=== PATIENT | female | born 1990 | race Hispanic/Latino ===

== ENCOUNTER 2016-10-12 03:46 | Outpatient (CLI) | payer OTHER ==
[~2016-10-12] VITALS: Ht 160 cm; Wt 88.0 kg
[2016-10-12] MEDS ORDERED: ACETAMINOPHEN 500 MG TAB As Ordered ONE (06:40)
[2016-10-12] MEDS ORDERED: ACETAMINOPHEN 500 MG TAB PO ONE (07:30)
== END 2016-10-12 07:00 | disposition home or self-care (01) ==
LOC: M LDO 03:46
PROVIDERS: ATTEND Obstetrics & Gynecology
DX: O26.893 Other specified pregnancy related conditions, third trimester (principal); R10.9 Unspecified abdominal pain; Z3A.33 33 weeks gestation of pregnancy

== ENCOUNTER 2016-10-27 16:15 | Outpatient (CLI) | payer OTHER ==
[~2016-10-27] VITALS: Ht 160 cm; Wt 92.0 kg
[2016-10-27 16:36] VITALS: BP 111/54
[2016-10-27] MEDS ORDERED: D5W 1000 ML IV ONE (17:15)
--- NOTE | 2016-10-27 17:27 | HPE ---
DATE OF ADMISSION: 10/27/2016 Lidia is a 26-year-old 1, para 0 at 35-5/7 weeks gestation with an EDC of 11/26/2016 based on last normal menstrual period and confirmed by first trimester ultrasound. She presents to labor and delivery today with report of onset of low right-sided back pain that initially started at approximately 12:38 a.m. this morning and has continued to progressively become more uncomfortable. She reports taking Tylenol at 0900 hours this morning and has not ate or drank much throughout the day. The fetus is active. Denies vaginal bleeding and leakage of fluid. care was initiated at [facility] in the first trimester. course has been uncomplicated. OBSTETRICAL HISTORY: Primigravida. OB LABS: O+, antibody screen negative, rubella immune, VDRL nonreactive. Urine culture no growth. Hep B surface antigen negative, HIV negative. Hep C antibody negative. Gonorrhea and chlamydia negative, negative cystic fibrosis carrier screening. Gestational diabetic screening 126. GBS is unknown. However was obtained in the office today. PAST MEDICAL HISTORY: Seasonal allergies. Childhood varicella. SURGERIES: None. FAMILY HISTORY: Diabetes. SOCIAL HISTORY: The patient is single. However, the father of the baby is at bedside and is supportive. She denies smoking, denies alcohol use and drug use. No history of any sexually transmitted infections. Denies history of abuse physical, sexual or emotional. ALLERGIES: No known drug allergies. CURRENT MEDICATIONS: Include only vitamins. PHYSICAL EXAMINATION: Temperature 99.3 with temperature oral, pulse 116, respirations 18, blood pressure 111/54. heart rate is 165 with moderate variability, positive excels. No decelerations. She does have an occasional contraction per EFM. Evaluation in the office with a UA demonstrates her urine with a specific gravity of 1.020, pH 6, 2+ leukocytes, 1+ nitrites, 3+ protein, 3+ blood. Sterile vaginal examination: 1 cm dilated, thick and high station, moderate texture posterior and no bloody show, positive bilateral CVA tenderness. ASSESSMENT: Intrauterine at 35 weeks and 5 days. heart rate category one. Pyelonephritis. PLAN: Per consult with Dr. Abel Molina to labor and delivery for 24-hour observation. Labs including CBC, renal profile, CMP. Renal ultrasound, IV fluid bolus. Regular diet. Out of bed ad stella. Likely will keep the patient until she is afebrile times 24 hours and then send her home on by mouth antibiotics. Urine culture was obtained in the office as well.
[2016-10-27 17:30] LABS: BASO % 0.2 % (0.0-1.0); EOS # 0.1 K/mm3 (0.0-0.50); EOS % 0.6 % (0.0-3.0); LARGE UNSTAINED CELL # 0.2 K/mm3 (0.0-0.4); LARGE UNSTAINED CELL % 1.3 % (0.0-4.0); LYMPH # 0.9 K/mm3 (1.5-6.5); LYMPH % 5.6 % (24.0-44.0); MEAN CORPUSCULAR HEMOGLOBIN 28.7 pg (27.0-33.0); MEAN CORPUSCULAR HGB CONC 34.5 g/dl (32.0-36.5); MEAN CORPUSCULAR VOLUME 83.2 fl (80.0-96.0); MONO # 1.2 K/mm3 (0.0-0.8); MONO % 8.9 % (0.0-5.0); NEUTROPHILS % 83.4 % (36.0-66.0); PLATELET COUNT, AUTOMATED 198 k/mm3 (150-450); RED CELL DISTRIBUTION WIDTH 13.2 % (11.5-14.5); WHITE BLOOD COUNT 13.2 K/mm3 (4.0-10.0)
[2016-10-27 17:32] LABS: ALBUMIN 2.7 GM/DL (3.2-5.2); ALBUMIN/GLOBULIN RATIO 0.77 (1.00-1.93); ALKALINE PHOSPHATASE 110 U/L (45-117); ALT/SGPT 23 U/L (12-78); ANION GAP 12 MEQ/L (8-16); AST/SGOT 17 U/L (15-37); BILIRUBIN,TOTAL 0.2 MG/DL (0.2-1.0); BLOOD UREA NITROGEN 5 MG/DL (7-18); CALCIUM LEVEL 8.6 MG/DL (8.5-10.1); CARBON DIOXIDE LEVEL 21 MEQ/L (21-32); CHLORIDE LEVEL 108 MEQ/L (98-107); CREATININE FOR GFR 0.61 MG/DL (0.55-1.02); GLOMERULAR FILTRATION RATE > 60.0 (>60); GLUCOSE, FASTING 116 MG/DL (70-105); POTASSIUM SERUM 3.8 MEQ/L (3.5-5.1); SODIUM LEVEL 141 MEQ/L (136-145); TOTAL PROTEIN 6.2 GM/DL (6.4-8.2)
[2016-10-27] MEDS: cefTRIAXone SOD 2 GM in D5W MINI-BAG PLUS 50 ML IV SCH (17:37)
[2016-10-27] MEDS: ACETAMINOPHEN 500 MG TAB PO PRN (17:37)
--- NOTE | 2016-10-27 17:39 | REP ---
Clinical: Flank pain. Possible pyelonephritis. Technique: Real time velasquez scale and color Doppler evaluation of the kidneys using curved array transducer. Findings: The bilateral kidneys are normal in contour, size, echogenicity, and reniform shape without hydronephrosis, nephrolithiasis, cystic or renal mass lesion. No perinephric fluid collections are identified. Doppler interrogation of the intra renal vasculature is normal. Bladder is unremarkable. Live intrauterine identified. Right kidney measures 11.7 x 5.7 x 5.2 cm; intrarenal RI equal 0.69. Left kidney measures 10.0 x 4.9 x 4.8 cm; intrarenal RI equals 0.63. Impression: Normal bilateral kidneys. No hydronephrosis or perinephric fluid. Signed by Ruy Alfonso MD 10/27/2016 05:31 P
[2016-10-27 17:41] VITALS: BP 106/58
[2016-10-27] MEDS ORDERED: PRENTAB9 PO (18:00)
[2016-10-27] MEDS ORDERED: ACET50TA PO (18:00)
[2016-10-27 19:59] VITALS: BP 118/56
[2016-10-27 21:18] VITALS: BP 106/51
[2016-10-27 22:33] VITALS: BP 109/51
[2016-10-27] MEDS ORDERED: PROMETHAZINE INJ 25 MG/ML VIAL (J2550) IV ONE (23:00)
[2016-10-27] MEDS ORDERED: BUTORPHANOL 2 MG/ML INJ (J0595) IV ONE (23:00)
[2016-10-28 01:45] VITALS: BP 106/52
[2016-10-28] MEDS: ACETAMINOPHEN 500 MG TAB PO PRN ×2 (01:50→23:24)
[2016-10-28 02:56] VITALS: BP 94/49
[2016-10-28 06:27] VITALS: BP 101/49
[2016-10-28 10:21] VITALS: BP 106/50
[2016-10-28 13:59] VITALS: BP 113/55
[2016-10-28] MEDS: cefTRIAXone SOD 2 GM in D5W MINI-BAG PLUS 50 ML IV SCH (17:48)
[2016-10-28 18:22] VITALS: BP 107/54
[2016-10-29 06:00] VITALS: BP 106/51
[2016-10-29 10:05] VITALS: BP 107/55
--- NOTE | 2016-10-30 03:51 | DSES ---
DATE OF ADMISSION: 10/27/2016 DATE OF DISCHARGE: 10/29/2016 HISTORY: 26-year-old, (G) 1 female at 35-5/7 weeks gestation presents with one day of worsening right flank pain and decreased appetite. The pain became progressively worse. She was evaluated in the office and diagnosed with probable pyelonephritis based upon clinical exam and urinalysis. HOSPITAL COURSE: The patient was admitted on 10/27/2016, for pyelonephritis in . She was mildly tachycardic and had a low-grade fever on admission. She was started on Rocephin. Renal ultrasound was normal. Labs were normal. Urine culture was sent. She had maximum temperature of 102.0 degrees Fahrenheit during hospitalization Her fever curve improved. Her right flank pain improved during hospitalization. Urine culture showed Escherichia (E) coli sensitive to cephalosporins. On hospital day #3, she was deemed stable for discharge as she had been afebrile overnight and was clinically improved. ADMISSION DIAGNOSIS: 35-5/7 weeks gestation, right-sided pyelonephritis. DISCHARGE DIAGNOSIS: 35-5/7 weeks gestation, right-sided pyelonephritis. DISPOSITION: Patient will continue on oral Keflex 500 mg three times a day. She will followup in the office within the next week for routine visit.
== END 2016-10-29 11:30 | disposition home or self-care (01) ==
LOC: M LDO 16:15 → M OBS 10-28 07:27 → M LDO 10-29 11:30
PROVIDERS: ATTEND Advanced Practice Midwife
DX: O99.89 Other specified diseases and conditions complicating pregnancy, childbirth and the puerperium (principal); N10 Acute pyelonephritis; Z3A.35 35 weeks gestation of pregnancy
CPT/HCPCS: 59025; 76775; 80053; 85025; 87081; 87088; 87186; 96361; 96374; 96375; J0595; J0696

== ENCOUNTER → 2016-10-27 | Outpatient (REF) | payer OTHER ==
[~2016-10-27] MED LIST: ACET50TA PO; BUTORPHANOL 2 MG/ML INJ (J0595) IV ONE; LR 1,000 ML IV SCH; PRENTAB9 PO; PROMETHAZINE INJ 25 MG/ML VIAL (J2550) IV ONE
== END ==
LOC: M LAB REF 17:11
PROVIDERS: ATTEND Advanced Practice Midwife

== ENCOUNTER 2016-12-03 06:07 | Inpatient (IN) | payer OTHER ==
[~2016-12-03] VITALS: Ht 157.5 cm; Wt 92.0 kg
[2016-12-03] VITALS (17 sets, daily range): BP systolic 94–137; BP diastolic 52–76
[~2016-12-03 06:07] MED LIST changes: -BUTORPHANOL 2 MG/ML INJ (J0595) IV ONE; -LR 1,000 ML IV SCH; -PROMETHAZINE INJ 25 MG/ML VIAL (J2550) IV ONE
[2016-12-03 06:49] LABS: MEAN CORPUSCULAR HEMOGLOBIN 28.2 pg (27.0-33.0); MEAN CORPUSCULAR HGB CONC 33.8 g/dl (32.0-36.5); MEAN CORPUSCULAR VOLUME 83.4 fl (80.0-96.0); RED CELL DISTRIBUTION WIDTH 14.1 % (11.5-14.5); WHITE BLOOD COUNT 11.2 K/mm3 (4.0-10.0)
[2016-12-03] MEDS ORDERED: LACTATED RINGER'S 1000 ML IV STA (07:38)
[2016-12-03] MEDS: miSOPROStol 50 MCG 1/2 TAB (S0191) PO SCH ×2 (07:51→12:10)
--- NOTE | 2016-12-03 08:21 | HPE ---
[facility] DATE OF ADMISSION: 12/03/2016 A 26-year-old 1, estimated date of delivery 11/26/2016, here at 41 weeks 0 days for induction of labor. Denies loss of fluid or bleeding. Fetus is active. Last normal menstrual period 02/20/2016 for expected date of delivery (NATHALIE) of 11/26/2016, sonogram at 7 weeks confirmed date of 11/30/2016. Anatomy scan within normal limits. Appropriate care. No known drug allergies. MEDICAL/SURGICAL: Seasonal allergies. FAMILY HISTORY: Noncontributory. SOCIAL HISTORY: . Father of the baby is in the field. Family is here and supportive. Denies tobacco, alcohol, drugs, or abuse. OBJECTIVE: Prepregnancy weight 178, total weight gain 34 pounds. O+, antibody negative, rubella and varicella immune. [facility] (VDRL) (test), hepatitis B, hepatitis C, HIV, gonorrhea, and chlamydia all negative. Cystic fibrosis negative. Declined genetic screening. 1-hour glucose 126, and group B streptococcus is negative. Vital signs are stable. She is in no apparent distress. Heart rate is regular. Respirations are easy. Abdomen is soft, gravid, longitudinal lie. Irregular contractions. heart 145. Moderate variability with accelerations. Sterile vaginal examination: 1-2 cm, 50% effaced, -3 station, and cephalic. ASSESSMENT: Primipara is at 41 weeks, category 1 tracing, for induction of labor. PLAN: Admit per consult Dr. Roberson. Misoprostol. Cervical ripening. Labor ad stella. Anticipate normal spontaneous vaginal .
[2016-12-03] MEDS ORDERED: LR 1,000 ML IV SCH (16:41)
[2016-12-03] MEDS ORDERED: OXYTOCIN DRIP 30 UNITS in APPROPRIATE DILUENT 1 EA IV SCH (16:45)
[2016-12-04] VITALS (47 sets, daily range): BP systolic 90–138; BP diastolic 50–77
[2016-12-04] MEDS ORDERED: FENTANYL 2MCG/ML ROPIVACAINE 0.2% IN 0.9% NACL 200ML IVBAG As Ordered ONE (02:07)
[2016-12-04] MEDS ORDERED: NALOXONE INJ 0.4 MG/1 ML VIAL (J2310) IV PRN ×3 (03:30→10:06)
[2016-12-04] MEDS ORDERED: EPIDURAL COMMENT XX SCH (03:30)
[2016-12-04] MEDS ORDERED: diphenhydrAMINE INJ 50MG/ML VIAL (J1200) IV PRN ×2 (03:30→10:30)
[2016-12-04] MEDS ORDERED: LACTATED RINGER'S 1000 ML IV PRN (03:30)
[2016-12-04] MEDS ORDERED: REFRIGERATOR IV KEYS XX PRN (03:30)
[2016-12-04] MEDS ORDERED: ONDANSETRON 4MG/2ML VIAL (J2405) IV PRN ×4 (03:30→10:30)
[2016-12-04] MEDS ORDERED: EPIDURAL/PCA KEYS XX PRN (03:30)
[2016-12-04] MEDS ORDERED: FENTANYL/ROPIVACAINE/NACL BAG 200 ML EPIDURAL SCH (03:30)
[2016-12-04] MEDS ORDERED: ePHEDrine SULFATE 25 MG/5 ML(5MG/ML) SYRINGE IV PRN (03:30)
[2016-12-04] MEDS ORDERED: BICITRA 30ML SOLN UDC PO ONE (08:45)
[2016-12-04] MEDS: PRENATAL VITAMIN TAB PO SCH (09:00)
[2016-12-04] MEDS ORDERED: LIDOCAINE 2% W/EPIN INJ 20ML **PRES FREE As Ordered ONE (09:08)
[2016-12-04] MEDS ORDERED: ONDANSETRON 4MG/2ML VIAL (J2405) As Ordered ONE (09:08)
[2016-12-04] MEDS ORDERED: ePHEDrine SULFATE 25 MG/5 ML(5MG/ML) SYRINGE As Ordered ONE (09:08)
[2016-12-04] MEDS ORDERED: OXYTOCIN INJ 10 UNITS/ML VIAL (J2590) As Ordered ONE (09:08)
[2016-12-04] MEDS ORDERED: SODIUM BICARBONATE 8.4% INJ 50 ML SYRINGE As Ordered ONE (09:08)
[2016-12-04] MEDS ORDERED: dexameTHASONE 4 MG/ML 1ML VIAL (J1100) As Ordered ONE (09:08)
[2016-12-04] MEDS ORDERED: KETOROLAC 60 MG/2 ML VIAL (J1885) As Ordered ONE (09:08)
[2016-12-04] MEDS ORDERED: PHENYLephrine HCL 500 MCG/5 ML (100MCG/ML) SYRINGE (J2370) As Ordered ONE (09:39)
[2016-12-04] MEDS ORDERED: MORPHINE PRES-FREE INJ 10 MG/10 ML VIAL (J2274) As Ordered ONE (09:41)
[2016-12-04] MEDS ORDERED: NALBUPHINE HCL 10 MG/ML AMP (J2300) IV PRN ×2 (10:06→10:30)
[2016-12-04] MEDS ORDERED: METOCLOPRAMIDE INJ 10MG/2ML VIAL (J2765) IV PRN (10:06)
[2016-12-04] MEDS ORDERED: OXYTOCIN DRIP 30 UNITS in APPROPRIATE DILUENT 1 EA IV SCH (10:09)
[2016-12-04] MEDS ORDERED: MEASLES,MUMPS,RUBELLA VACCINE INJ (MMR-II) (90707) SC SCH (10:15)
[2016-12-04] MEDS ORDERED: PROMETHAZINE 25 MG TAB PO PRN (10:15)
[2016-12-04] MEDS ORDERED: PERCOCET 5MG/325MG TAB PO PRN ×2 (10:15)
[2016-12-04] MEDS ORDERED: RHOGAM 300 MCG (1500 IU) INJ (J2790) IM SCH (10:15)
[2016-12-04] MEDS ORDERED: fentaNYL 100 MCG/2 ML INJECTION (J3010) IV PRN (10:30)
[2016-12-04] MEDS ORDERED: LR 1,000 ML IV SCH (10:30)
[2016-12-04] MEDS: KETOROLAC 30 MG/ML VIAL (J1885) IV SCH ×2 (15:13→21:34)
[2016-12-04] MEDS: LR 1,000 ML IV SCH ×2 (16:00→21:35)
[2016-12-04] MEDS: DOCUSATE SODIUM 100 MG CAP PO SCH (21:34)
[2016-12-05] VITALS (7 sets, daily range): BP systolic 100–124; BP diastolic 52–64
[2016-12-05] MEDS: LR 1,000 ML IV SCH (02:09)
[2016-12-05] MEDS: KETOROLAC 30 MG/ML VIAL (J1885) IV SCH ×2 (04:01→09:17)
[2016-12-05 07:31] LABS: MEAN CORPUSCULAR HEMOGLOBIN 28.3 pg (27.0-33.0); MEAN CORPUSCULAR HGB CONC 33.6 g/dl (32.0-36.5); MEAN CORPUSCULAR VOLUME 84.4 fl (80.0-96.0); WHITE BLOOD COUNT 13.8 K/mm3 (4.0-10.0)
[2016-12-05] MEDS: DOCUSATE SODIUM 100 MG CAP PO SCH ×2 (08:05→20:28)
[2016-12-05] MEDS: PRENATAL VITAMIN TAB PO SCH (08:05)
[2016-12-05] MEDS: IBUPROFEN 800 MG TAB PO SCH (16:57)
[2016-12-06] MEDS: IBUPROFEN 800 MG TAB PO SCH ×2 (04:18→08:21)
[2016-12-06 06:19] VITALS: BP 113/59
[2016-12-06] MEDS ORDERED: PRENTAB9 PO (07:13)
[2016-12-06] MEDS ORDERED: IBUP-1114 PO (07:13)
[2016-12-06] MEDS ORDERED: OXYC1TAB23 PO ×3 (07:13→09:15)
--- NOTE | 2016-12-06 07:24 | DSES ---
DATE OF ADMISSION: 12/03/2016 DATE OF DISCHARGE: DISCHARGE DIAGNOSIS: Primary section, postoperative day #2, stable condition. SURGEON: Dr. Duy Roberson HISTORY: Lidia is a 26-year-old, 1, para 1-0-0-1 now, who was admitted to labor and delivery for induction of labor due to post-term . She had arrest of dilation and a primary section was performed by Dr. Duy Roberson. The surgery was uncomplicated. The female weighed 3398 grams, 7 pounds 8 ounces, and had eight and nine. The patient has had her pain well controlled with by mouth Percocet and ibuprofen. She has been out of bed for self care, ibeth care and care as well as to shower. Breast feeding was initiated and she has no complaints today and desires discharge. OBJECTIVE: Vital signs are stable. Temperature 98.2. Pulse 76. Respirations 18. Blood pressure (BP) 113/59. Preoperative CBC on 12/03/2016 with hemoglobin of 10.7, hematocrit of 31.8 and platelets of 198. Postoperative CBC on 12/05/2016 with hemoglobin of 9.4, hematocrit 28 and platelets 181. Her breasts are soft and nontender. Nipples are a little pink; however, there are no cracks or bleeding. Her abdomen is fundus firm at umbilicus (U), nontender, incision is intact, Steri-Strips are in place. There is no redness. No warmth. No edema and no drainage. Perineum is intact. Lochia rubra scant. Bilateral lower extremities with +2 pitting edema. ASSESSMENT: Postoperative day #2 primary section in stable condition. PLAN: Discharge the patient to home. Prescriptions have been E-prescribed for ibuprofen, Colace and Percocet by Dr. Roberson. I did review discharge instructions. She is to follow up at [facility] for a 2-week incision check and a 6-week visit. I reviewed breast care, incision care, ibeth care, pelvic rest, activity and lifting restrictions, signs and symptoms of infection, access to care, and other danger signs which to report. All of the patient's questions have been answered and she does desire discharge.
[2016-12-06] MEDS: DOCUSATE SODIUM 100 MG CAP PO SCH (08:20)
[2016-12-06] MEDS: PRENATAL VITAMIN TAB PO SCH (08:20)
[2016-12-06] MEDS ORDERED: IBUP600T26 PO (09:16)
[2016-12-06] MEDS ORDERED: COLA100C PO (09:16)
== END 2016-12-06 11:45 | disposition home or self-care (01) | DRG 766 ==
LOC: M LDI 06:07 → M OBS 12-04 11:51
PROVIDERS: ADMIT Advanced Practice Midwife; ATTEND Obstetrics & Gynecology
PROC: 3E0DXGC Introduction of Other Therapeutic Substance into Mouth and Pharynx, External Approach (ICD-10-PCS; 2016-12-03)
PROC: 10D00Z1 Extraction of Products of Conception, Low, Open Approach (ICD-10-PCS; principal; 2016-12-04 09:20)
DX: O48.0 Post-term pregnancy (principal); Z37.0 Single live birth; Z3A.41 41 weeks gestation of pregnancy; O62.0 Primary inadequate contractions

== ENCOUNTER 2017-04-01 07:20 | Emergency (ER) | payer OTHER ==
[~2017-04-01] VITALS: Ht 160 cm; Wt 84.1 kg
[~2017-04-01 07:20] MED LIST changes: +COLA100C5 PO; +IBUP-1022 PO; +IBUP-1114 PO; +OXYC1TAB23 PO
[2017-04-01 07:27] VITALS: BP 119/67
[2017-04-01] MEDS ORDERED: PINK EYE RELIEF OS (07:31)
[2017-04-01] MEDS ORDERED: GENT3OPD OU (08:05)
[2017-04-01] MEDS ORDERED: GENTAMICIN 0.3% OPHTH SOL 5 ML BTL OU ONE (08:15)
== END 2017-04-01 08:18 | disposition home or self-care (01) ==
LOC: M ED 07:20
DX: H10.33 Unspecified acute conjunctivitis, bilateral (principal)